=== PATIENT | female | born 1950 | race Caucasian/White ===

== ENCOUNTER → 2017-03-23 | Outpatient (CLI) | payer OTHER, MEDICARE | LOC: BHFA 09:30 | PROVIDERS: ATTEND Internal Medicine Cardiovascular Disease | DX: I48.0 Paroxysmal atrial fibrillation (principal); I10 Essential (primary) hypertension | CPT/HCPCS: 78452; 93017; A9500 ==

== ENCOUNTER → 2017-03-30 | Outpatient (CLI) | payer OTHER, MEDICARE | LOC: FIMAGING 11:55 | PROVIDERS: ATTEND Internal Medicine | DX: Z12.31 Encounter for screening mammogram for malignant neoplasm of breast (principal); Z13.820 Encounter for screening for osteoporosis | CPT/HCPCS: G0202 ==

== ENCOUNTER → 2017-05-28 | Outpatient (CLI) | payer OTHER, MEDICARE | LOC: FIMAGING 11:23 | PROVIDERS: ATTEND Internal Medicine | DX: M23.221 Derangement of posterior horn of medial meniscus due to old tear or injury, right knee (principal); M23.251 Derangement of posterior horn of lateral meniscus due to old tear or injury, right knee; M25.461 Effusion, right knee; M22.41 Chondromalacia patellae, right knee ==

== ENCOUNTER 2017-06-15 07:37 | Day surgery (SDC) | payer OTHER, MEDICARE ==
[~2017-06-15 07:37] MED LIST: ceFAZolin 2 GM/SWFI 2 GM/20 ML SYR IVP ONE
[2017-06-15] MEDS ORDERED: BUPIVACAINE/EPI 0.5% 30 ML SDV ONE ×2 (07:49→09:43)
[2017-06-15] MEDS ORDERED: LR 1,000 ML IV ONE (07:53)
[2017-06-15] MEDS ORDERED: LIDOCAINE 1% 2 ML INJ ID PRN (07:53)
[2017-06-15] MEDS ORDERED: LIDOCAINE 1% 2 ML INJ ONE (07:56)
[2017-06-15 08:27] VITALS: PULSE 58
[2017-06-15 09:23] LABS: INR 1.1 (0.83-1.16); PROTIME(PATIENT) 14.4 SEC (12.0-15.0)
--- NOTE | 2017-06-15 09:25 | PDHPUP ---
History & Physical Update H&P update statement: This history and physical update is based on an assessment of the patient which was completed after admission or registration (within 24 hours), but prior to the surgery/procedure. H&P update: H&P reviewed & patient examined, no change in patient's condition since H&P completed
[2017-06-15] MEDS ORDERED: MIDAZOLAM 2 MG/2 ML VIAL IVP ONE (09:46)
--- NOTE | 2017-06-15 09:47 | PDANEPAE ---
ANE Past Medical History - Cardiovascular History Hx Hypertension: Yes Hx Arrhythmias: Yes Hx Chest Pain: No Hx Coronary Artery / Peripheral Vascular Disease: No Hx CHF / Valvular Disease: No Hx Palpitations: No Cardiovascular History Comment[place] - Pulmonary History Hx COPD: No Hx Asthma/Reactive Airway Disease: Yes Hx Recent Upper Respiratory Infection: No Hx Oxygen in Use at Home: No Hx Sleep Apnea: Yes Sleep Apnea Screening Result - Last Documented: Positive - Neurologic History Hx Cerebrovascular Accident: No Hx Seizures: No Hx Dementia: No - Endocrine History Hx Diabetes: Yes Obesity: moderate Endocrine History Comment: type 11 - Renal History Hx Renal Disorders: No - Liver History Hx Hepatic Disorders: No - Neurological & Psychiatric Hx Hx Neurological and Psychiatric Disorders: No - Cancer History Hx Cancer: No - Congenital Disorder History Hx Congenital Disorders: No Congenital History Comment: CVA'S, ANEURYSMS, CAD,. TACHY ARRYTHMIAS - GI History Hx Gastrointestinal Disorders: Yes Gastrointestinal History Comment: gastric sleeve 2013. no NG tubes r/t gastric sleeve - Other Health History Other Health History: bruises easily R/T coumadin - Chronic Pain History Chronic Pain: Yes (generlised arthritic pain) - Surgical History Prior Surgeries: 2013 gastric sleeve. 1979 total abd hysterectomy with bilat oophorectomy ANE Review of Systems Review of Systems: - Exercise capacity METS (RN): 3 METS ANE Patient History - Allergies Allergies/Adverse Reactions: Tetracyclines Allergy (Severe, Verified 06/06/17 14:44) Other-Enter Comments - Home Medications Home Medications: Allopurinol 06/06/17 [Last Taken 06/09/17] Amlodipine Besylate 06/06/17 [Last Taken 06/15/17 05:30] Atorvastatin Calcium 06/06/17 [Last Taken 06/14/17] Coumadin 06/06/17 [Last Taken 06/09/17] Flecainide Acetate 06/06/17 [Last Taken 06/15/17 05:30] Levemir 06/06/17 [Last Taken 06/14/17 8 units] Levothyroxine 06/06/17 [Last Taken 06/15/17 05:30] Metformin HCl 06/06/17 [Last Taken 06/14/17] Metoprolol Tartrate 06/06/17 [Last Taken 06/15/17 05:30] Quinapril HCl 06/06/17 [Last Taken 06/15/17 05:30] Tylenol ES 500 mg (*) 06/06/17 [Last Taken 06/14/17] - NPO status NPO Since - Liquids (Date): 06/14/17 NPO Since - Liquids (Time): 23:59 NPO Since - Solids (Date): 06/14/17 NPO Since - Solids (Time): 21:00 - Smoking Hx Smoking Status: Never smoked - Family Anes Hx Family Hx Anesthesia Complications: none ANE Labs/Vital Signs - Vital Signs Blood Pressure: 159/95 Heart Rate: 58 Respiratory Rate: 16 O2 Sat (%): 95 Height: 165.1 cm Weight: 99.79 kg ANE Physical Exam - Airway Neck exam: decreased ROM Mallampati Score: Class 3 Mouth exam: normal dental/mouth exam - Pulmonary Pulmonary: no respiratory distress - Cardiovascular Cardiovascular: regular rate and rhythym - ASA Status ASA Status: III ANE Anesthesia Plan Anesthesia Plan: GA w LMA
[2017-06-15] MEDS ORDERED: PROPOFOL/EMULSION 500 MG/50 ML BOTTLE IV ONE (09:58)
[2017-06-15] MEDS ORDERED: fentaNYL 100 MCG/2 ML INJ ONE (09:58)
[2017-06-15] MEDS ORDERED: LIDOCAINE 2% 5 ML SDV ONE (09:59)
[2017-06-15] MEDS ORDERED: fentaNYL 100 MCG/2 ML INJ IVP PRN (10:52)
[2017-06-15] MEDS ORDERED: NALOXONE HCL 0.4 MG/ML INJ IVP PRN (10:52)
[2017-06-15] MEDS ORDERED: PROMETHAZINE HCL 25 MG/ML INJ IVP PRN (10:52)
[2017-06-15] MEDS ORDERED: HYDROCODONE/APAP 5/325 TAB PO PRN (10:52)
[2017-06-15] MEDS ORDERED: LR 500 ML IV PRN (10:52)
[2017-06-15] MEDS ORDERED: KETOROLAC 30 MG/1 ML SDV ONE (10:54)
[2017-06-15] MEDS ORDERED: DEXAMETHASONE 4 MG/ML VIAL ONE (10:54)
[2017-06-15] MEDS ORDERED: ONDANSETRON 4 MG/2 ML VIAL ONE (10:54)
--- NOTE | 2017-06-15 11:25 | POSTOPPROG ---
Post Op Note Date of Operation: 06/15/17 Surgeon: Radhika Patel Yield Improvement Engineer: Radhika Patel Anesthesiologist: Dr. Bales Anesthesia: GET(General Endotracheal) Pre-op Diagnosis: right knee meniscal tear Post-op Diagnosis: right knee bilateral meniscal tear Indication: right knee pain Procedure: right knee partial bilateral meniscectomy Inf/Abcess present in the surg proc area at time of surgery?: No EBL: Minimal Complications: none
--- NOTE | 2017-06-15 11:28 | SOAPPROG ---
TALHA Progress Note Assessment/Plan: Assessment/Plan: 66y/o female s/p right knee partial bilateral meniscectomy - orders as written - ambulate with assist - [facility] [address] [facility] - home when discharge criteria met - resume coumadin tomorrow - f/u in 7-10 days, call with issues or concerns 06/15/17 11:27 Subjective: Mild knee pain Objective: Vital Signs Temp Pulse Resp BP Pulse Ox 36.4 C 58 L 16 159/95 H 95 06/15/17 08:15 06/15/17 09:47 06/15/17 09:47 06/15/17 09:47 06/15/17 09:47 PT 14.4 SEC (12.0-15.0) 06/15/17 08:55 INR 1.10 (0.83-1.16) 06/15/17 08:55 NAD, no distress EOMi, face symmetric MAEx4 incisions clean, dressed ICD10 Worksheet Patient Problems: Problems Problem Status Onset Knee pain Acute - ICD10 Problem Qualifiers (1) Knee pain
--- NOTE | 2017-06-15 11:28 | POSTANESTH ---
Post Anesthetic Evaluation Cardiovascular Status: Normal, Stable Respiratory Status: Normal, Stable Level of Consciousness/Mental Status: Can Participate in Eval Pain Control: Adequate, Prn Tx Ordered Nausea/Vomiting Control: Adequate, Prn Tx Ordered Complications Possibly Related to Anesthesia: None Noted
[2017-06-15 13:14] VITALS: TEMP 97.5
[2017-06-15 13:16] VITALS: BP 155/71; RESP 14; O2SAT 95
--- NOTE | 2017-06-15 15:18 | GOP ---
[f rep st] OPERATIVE REPORT DATE OF OPERATION: 06/15/2017 SURGEON: Pauline Solano MD MANAGER QUANTITATIVE: CELENA Ellis ANESTHESIA: General. PREOPERATIVE DIAGNOSIS: Medial meniscus tear, right knee. POSTOPERATIVE DIAGNOSIS: Bilateral meniscus tears, right knee. PROCEDURE PERFORMED: Arthroscopy, partial bilateral meniscectomy, right knee. FINDINGS: A diagnostic arthroscopy of the right knee was performed with the following findings. 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 There was no area of full-thickness loss. The patient did have a large swath of full-thickness cartilage loss on the medial side of the trochlear groove. This extended across the anterior surface of the medial femoral condyle. The lateral trochl ea and lateral femoral condyle were intact. The medial compartment was then entered and the patient was noted to have a degenerative-type tear of the medial meniscus. This involved approximately 40% t o 50% of the meniscus, extending from the posterior third around to the junction of the middle and an terior third. A partial medial meniscectomy was performed. The medial meniscus was trimmed back to a stable rim. There was some mild thinning of the articular cartilage in the medial compartment. Th e intercondylar notch was inspected and there was a partial tear of the ACL. Some fibers were balled up on the medial side of the ACL and were debrided. The remainder of the ACL was intact. The later al compartment was then entered and the patient also had a degenerative tear of the lateral meniscus. A partial lateral meniscectomy was performed. Approximately 25% to 30% of the lateral meniscus was excised. ESTIMATED BLOOD LOSS: Minimal. DESCRIPTION OF PROCEDURE: The patient was taken to the operating room, placed in a supine position o n the operating table. Following induction of adequate general inhalation anesthesia, the right leg and knee were prepped and draped in the usual sterile manner. The patient received 2 g of IV Ancef. The arthroscope was introduced through a lateral portal and the instrumentation through a medial por leonie. A diagnostic arthroscopy was performed with the above-noted findings. Our attention was turned first to the pathology in the medial compartment. The medial meniscus was trimmed with the baskets and the shaver. It was trimmed back to a stable rim. The instruments were then placed laterally and the same procedure was repeated. At the completion of the procedure, the instrumentation was remove d and the knee was injected with 20 cc of 0.5% Marcaine with epinephrine. The portals were closed us ing 4-0 nylon in interrupted fashion. Sterile dressings were applied. The patient tolerated the pro cedure well and there were no complications. Estimated blood loss minimal. Final sponge and needle counts were correct. The patient was transported to the recovery room in good condition. /[id number]/MODL
== END 2017-06-15 12:49 | disposition home or self-care (01) ==
LOC: FSGY 07:37
PROVIDERS: ATTEND Orthopaedic Surgery
PROC: 0SBC4ZZ Excision of Right Knee Joint, Percutaneous Endoscopic Approach (ICD-10-PCS; principal; 2017-06-15 09:45)
DX: M23.221 Derangement of posterior horn of medial meniscus due to old tear or injury, right knee (principal); M23.251 Derangement of posterior horn of lateral meniscus due to old tear or injury, right knee; M22.41 Chondromalacia patellae, right knee; M25.561 Pain in right knee; I10 Essential (primary) hypertension; I48.0 Paroxysmal atrial fibrillation; D64.9 Anemia, unspecified; E11.9 Type 2 diabetes mellitus without complications; M10.9 Gout, unspecified; G47.30 Sleep apnea, unspecified; Z79.01 Long term (current) use of anticoagulants; Z86.73 Personal history of transient ischemic attack (TIA), and cerebral infarction without residual deficits; Z98.84 Bariatric surgery status
CPT/HCPCS: J0690; J1100; J1885; J2250; J2405; J2704; J3010

== ENCOUNTER → 2017-06-23 | Outpatient (CLI) | payer OTHER, MEDICARE | LOC: FIMAGING 16:48 | PROVIDERS: ATTEND Physician Assistant | DX: M79.661 Pain in right lower leg (principal) ==

== ENCOUNTER → 2018-03-26 | Outpatient (CLI) | payer OTHER, MEDICARE | LOC: FIMAGING 10:08 | PROVIDERS: ATTEND Internal Medicine | DX: Z12.31 Encounter for screening mammogram for malignant neoplasm of breast (principal) ==

== ENCOUNTER → 2018-07-30 | Outpatient (CLI) | payer OTHER, MEDICARE | LOC: GIMAGING 15:31 | PROVIDERS: ATTEND Internal Medicine | DX: R05 Cough (principal); J18.9 Pneumonia, unspecified organism | CPT/HCPCS: 71046-PO ==

== ENCOUNTER → 2018-09-19 | Outpatient (CLI) | payer OTHER, MEDICARE | LOC: CIMAGING 09:48 | PROVIDERS: ATTEND Internal Medicine | DX: J18.9 Pneumonia, unspecified organism (principal) | CPT/HCPCS: 71046-PO ==

== ENCOUNTER → 2018-09-22 | Outpatient (CLI) | payer OTHER, MEDICARE | LOC: CIMAGING 11:07 | PROVIDERS: ATTEND Internal Medicine | DX: R93.89 Abnormal findings on diagnostic imaging of other specified body structures (principal) | CPT/HCPCS: 71250-PO ==